=== PATIENT | male | born 1970 | race Caucasian/White ===

== ENCOUNTER 2016-02-26 22:26 | Emergency (ER) | payer OTHER ==
[~2016-02-26] VITALS: Ht 182.9 cm; Wt 99.0 kg
[~2016-02-26 22:26] MED LIST: ADVIL200 MG PO; FLOMAX0.4 MG PO; KEFLEX500 MG PO; MOTRIN600 MG PO; NOHOMEMEDS; PERCOCET 5/31 TABLET PO; ZOFRAN4 MG PO
[2016-02-26 23:04] LABS: HEMATOCRIT 40.3 % (38.0-50.0); MCH 28.2 PG (29.0-34.0); MCHC 34.2 G/DL (30.0-36.0); MCV 82.2 FL (86-99); MEAN PLAT.VOLUME 9.3 uM^3 (9.0-12.4); PLATELET COUNT 209 K/uL (156-360); RBC DIS.WIDTH-CV 13.7 % (11.8-14.6); RBC DIS.WIDTH-SD 39.8 % (39-53); WHITE BLOOD COUNT 8.9 K/uL (4.1-10.2)
[2016-02-26 23:17] LABS: CHLORIDE 108 mEq/L (99-109); POTASSIUM 3.9 mEq/L (3.7-5.4); SODIUM 139 mEq/L (136-147)
[2016-02-26 23:19] LABS: GLUCOSE 120 mg/dL (70-99)
[2016-02-26 23:20] LABS: ANION GAP 9 MEQ/L (2-14)
[2016-02-26 23:23] LABS: GFR ESTIMATE (CALCULATED) > 59 mL/min/
[2016-02-26 23:24] LABS: UREA NITROGEN (BUN) 15 mg/dL (9-23)
[2016-02-26 23:54] LABS: ADD MIUA? YES; BILIRUBIN NEGATIVE; BLOOD LARGE; COLOR RED ((YELLOW)); GLUCOSE (STRIP) NEGATIVE; KETONES TRACE; LEUKOCYTES SMALL; NITRITE NEGATIVE; PROTEIN (STRIP) 30; SPECIFIC GRAVITY 1.024 (1.000-1.030)
[2016-02-27 00:41] LABS: RED BLOOD CELLS TNTC /HPF (0-5)
[2016-02-27 00:42] LABS: AMORPHOUS URATES CRYSTALS 3+; BACTERIA 1+; CASTS NONE SEEN /LPF; CRYSTALS PRESENT; EPITHELIAL CELLS NONE SEEN; MUCUS NONE SEEN; UCUL ADDED? NO; WHITE BLOOD CELLS 0-5 /HPF (0-5)
[2016-02-27] MEDS ORDERED: FLUTICASONE PRO16 GM BOTH NARES (00:44)
[2016-02-27] MEDS ORDERED: LORATADINE10 M2 PO (00:45)
[2016-02-27] MEDS ORDERED: ZOFRAN4 MG PO (01:15)
[2016-02-27] MEDS ORDERED: PERCOCET 5/31 TABLET PO (01:15)
[2016-02-27] MEDS ORDERED: FLOMAX0.4 MG PO (01:15)
[2016-02-27] MEDS ORDERED: CIPRO500 MG PO (01:16)
[2016-02-27 01:34] VITALS: BP 139/89
== END 2016-02-27 01:35 | disposition home or self-care (01) ==
LOC: EME 22:26
DX: N20.0 Calculus of kidney (principal); Z87.442 Personal history of urinary calculi
CPT/HCPCS: 74176; 80048; 81003; 85027; 99281; 99284; J1170; J1885; J2405; J3010